=== PATIENT | male | born 1975 | race Hispanic/Latino ===

== ENCOUNTER 2017-10-02 16:19 | Emergency (ER) | payer MEDICARE ==
--- NOTE | 2017-10-02 16:57 | Emergency Department Report ---
ED General Adult HPI - General Chief complaint: Overdose Stated complaint: POSSIBLE OVERDOSE Time Seen by Provider: 10/02/17 16:44 Source: patient, EMS (ems notes not available at time of chart dictation), RN notes reviewed, old records reviewed Mode of arrival: Stretcher Limitations: Altered Mental Status (patient does not know how he got here) - History of Present Illness Initial comments: This is a 42-year-old gentleman who is not known to me previously. He doesn't know why he is in the emergency room. He doesn't know how he got here. The patient was admitted to this hospital and June for presumed overdose and unresponsiveness. He was found to have an acute metabolic encephalopathy, hepatic failure, acute kidney injury, rhabdomyolysis, and presumed aspiration pneumonia. Patient's also has a reported history of polysubstance abuse. The patient denies headache, neck pain, chest pain, abdominal pain, shortness of breath, homicidality, suicidality. He denies toxic ingestions. As per triage nurse documentation, the patient's girlfriend found him with shallow decreased respirations and unresponsiveness. Apparently EMS found the patient to be responsive but lethargic, and the patient admitted to EMS that he had used heroin. The patient is awake and follows commands currently, but doesn't recall any of this, and can therefore not described qualitative nature of symptoms, exacerbating or relieving factors. -: unknown Radiation: other Quality: other Consistency: other Improves with: other Worsens with: other Associated Symptoms: confusion, malaise, weakness, other (see history of present illness). denies: chest pain, cough, diaphoresis, fever/chills, headaches, loss of appetite, nausea/vomiting, rash, seizure, shortness of breath , syncope - Related Data Previous Rx's Medication Instructions Recorded Last Taken Type Amoxicillin/K Clav Tab [Augmentin 1 each PO Q12HR #6 tablet 06/14/17 Unknown Rx 875MG TAB] Naloxone HCl [Narcan] 4 mg NS Q1HR PRN #5 spray 10/02/17 Unknown Rx Allergies Allergy/AdvReac Type Severity Reaction Status Date / Time No Known Allergies Allergy Unverified 10/21/13 19:01 ED Review of Systems ROS: Stated complaint: POSSIBLE OVERDOSE Other details as noted in HPI Comment: Unobtainable due to pts medical conditions ED Past Medical Hx - Past Medical History Hx Psychiatric Treatment: Yes (anxiety) Additional medical history: Care Home IV drug use per family - Surgical History Additional Surgical History: Unknown - Social History Smoking Status: Current Every Day Smoker Substance Use Type: Alcohol, Heroin - Medications Home Medications: Home Medications Medication Instructions Recorded Confirmed Last Taken Type Amoxicillin/K Clav Tab [Augmentin 1 each PO Q12HR #6 tablet 06/14/17 Unknown Rx 875MG TAB] Naloxone HCl [Narcan] 4 mg NS Q1HR PRN #5 spray 10/02/17 Unknown Rx ED Physical Exam - General Limitations: Altered Mental Status General appearance: anxious, in distress - Head Head exam: Present: atraumatic, normocephalic - Eye Eye exam: Present: normal appearance, PERRL, EOMI. Absent: nystagmus - ENT ENT exam: Present: normal exam, normal orophraynx, mucous membranes moist, normal external ear exam - Neck Neck exam: Present: normal inspection, full ROM. Absent: tenderness, meningismus - Respiratory Respiratory exam: Present: normal lung sounds bilaterally. Absent: respiratory distress, wheezes, rales, rhonchi, chest wall tenderness - Cardiovascular Cardiovascular Exam: Present: normal rhythm, tachycardia, normal heart sounds. Absent: systolic murmur, diastolic murmur, rubs, gallop - GI/Abdominal GI/Abdominal exam: Present: soft, normal bowel sounds. Absent: distended, tenderness, guarding, rebound, rigid, pulsatile mass - Rectal Rectal exam: Present: deferred - Extremities Exam Extremities exam: Present: normal inspection, full ROM, normal capillary refill , other (2+ pulses noted in the bilateral upper, lower extremities. Compartments soft. No long bony tenderness. The pelvis is stable.). Absent: tenderness, pedal edema, joint swelling, calf tenderness - Back Exam Back exam: Present: normal inspection, full ROM. Absent: tenderness, CVA tenderness (R), paraspinal tenderness, vertebral tenderness - Neurological Exam Neurological exam: Present: alert (patient is alert to name and location. Does not know the month or the day of the week), CN II-XII intact, other ( Extraocular movements intact. Tongue midline. No facial droop. Facial sensation intact to light touch in the V1, V2, V3 distribution bilaterally. 5 and 5 strength in 4 extremities.. Sensation is intact to light touch in 4 extremities.). Absent: motor sensory deficit - Psychiatric Psychiatric exam: Present: anxious. Absent: homicidal ideation, suicidal ideation - Skin Skin exam: Present: warm, dry, intact, normal color. Absent: rash ED Course Vital Signs 10/02/17 10/02/17 10/02/17 16:24 16:27 16:30 Temperature 97.8 F Pulse Rate 120 H 112 H 115 H Respiratory 17 16 10 L Rate Blood Pressure 132/106 132/106 O2 Sat by Pulse 85 81 L Oximetry 10/02/17 10/02/17 10/02/17 16:46 17:00 17:16 Temperature Pulse Rate 98 H 98 H 92 H Respiratory 4 L 5 L 13 Rate Blood Pressure 132/106 132/106 118/70 O2 Sat by Pulse 95 95 95 Oximetry 10/02/17 10/02/17 10/02/17 17:30 17:50 18:00 Temperature Pulse Rate 89 79 78 Respiratory 8 L 9 L 6 L Rate Blood Pressure 116/72 116/72 133/68 O2 Sat by Pulse 97 93 Oximetry 10/02/17 10/02/17 10/02/17 18:16 18:30 18:40 Temperature Pulse Rate 77 73 Respiratory 6 L 6 L 16 Rate Blood Pressure 133/68 116/69 O2 Sat by Pulse 92 94 96 Oximetry 10/02/17 10/02/17 18:46 19:00 Temperature Pulse Rate 108 H 86 Respiratory 11 L 9 L Rate Blood Pressure 116/69 123/76 O2 Sat by Pulse 95 92 Oximetry - Reevaluation(s) Reevaluation #1: 10/02/17 17:13 Differential diagnosis, including but not limited to: Toxic encephalopathy, metabolic encephalopathy, intracranial injury, cervical spine injury, dehydration, overdose Assessment and plan: 42-year-old male with a recurrent presentation of probable overdose. He indicates no homicidality or suicidality. Most likely he has a recreational overdose. He is a nonfocal neurologic examination and is protecting his airway now, follows commands, and is saturating 99% on supplemental oxygen. We will check serum laboratory studies, toxicology studies , x-ray of the chest, EKG, obtained CT scan of the brain, cervical spine, and obtain a mental health consult for collateral information. We will observe the patient on a cardiac rehabilitation specialist with pulse oximetry. Reevaluation #2: 10/02/17 22:36 The patient has been reassessed by me numerous times while he has been here in the emergency room. His recollection has greatly improved. He thinks that he accidentally overdosed. He is currently not homicidal or suicidal, he walks with a steady gait and he exhibits decision-making capacity. I specifically advised the patient to abstain from recreational drug use, and specifically counseled him that it may result in unintentional , disability, paralysis, loss of quality of life. The patient verbalized understanding. He was also seen by the psychiatry team who agreed that the patient did not meet 1013 criteria, and he will be discharged to follow up with outpatient resources. ED Medical Decision Making - Lab Data Result diagrams: 10/02/17 17:02 10/02/17 17:02 Vital Signs 10/02/17 16:27 Temperature 97.8 F Pulse Rate 112 H Respiratory 16 Rate Blood Pressure 132/106 O2 Sat by Pulse 85 Oximetry - EKG Data -: EKG Interpreted by Me Rate: tachycardia - EKG Data 10/02/17 18:09 Sinus tachycardia Sinus, 95 bpm, right axis deviation, high left ventricular voltage, QTC prolonged, not a STEMI. Appears unchanged compared to prior EKG, with the exception of the right axis deviation - Radiology Data Radiology results: report reviewed, image reviewed interpreted by me: X-ray of the chest is negative for acute disease. Noncontrast CT scan of the brain is negative for acute disease. CT scan of the cervical spine: Critical care attestation.: If time is entered above; I have spent that time in minutes in the direct care of this critically ill patient, excluding procedure time. ED Disposition Clinical Impression: History of substance abuse Disposition: DC-01 TO HOME OR SELFCARE Is pt being admited?: No Does the pt Need Aspirin: No Condition: Stable Instructions: Narcotic Abuse (ED), Opioid Dependence (ED), Polysubstance Abuse (ED) Additional Instructions: The patient should make every effort to discontinue narcotic abuse/abuse. Long- term abuse of narcotics and illicit drugs may result in disability, paralysis , loss of quality of life. Use Narcan medication as directed for symptoms of narcotic overdose, which include sleepiness, respiratory depression, change in mental status. Follow-up with the primary care doctor or mental health professional within the next month. Return to the ER right away with fevers, chills, lethargy, irritability, projectile vomiting, change in mental status, confusion, inability to tolerate liquid feedings. Referrals: PRIMARY CARE, [Primary Care Provider] - 3-5 Days DENG ORTIZ MD [Staff Physician] - 3-5 Days [facility] [Provider Group] - 3-5 Days [facility] [Outside] - 3-5 Days
--- NOTE | 2017-10-02 17:20 | XRay Report ---
FINAL REPORT EXAM: XR CHEST 1V AP HISTORY: ams tachycardia TECHNIQUE: Frontal portable examination of the chest PRIORS: 06/14/2017 FINDINGS: There is no visible pulmonary consolidation, pleural effusion, or pneumothorax. Cardiac silhouette size is normal without vascular congestion. No visible acute displaced fracture in the regional skeleton. IMPRESSION: No acute cardiopulmonary disease in the visualized chest
[2017-10-02 17:23] LABS: Basophils % (Auto) 0.2 % (0.0-1.8); Eosinophils % (Auto) 0.2 % (0.0-4.3); Hemoglobin 15.5 gm/dl (11.8-15.2); Lymphocytes # (Auto) 1.6 K/mm3 (1.2-5.4); Lymphocytes % (Auto) 12.2 % (13.4-35.0); Mean Corpuscular HGB Conc 34 % (32-34); Mean Corpuscular Hemoglobin 31 pg (28-32); Mean Corpuscular Volume 92 fl (84-94); Monocytes % (Auto) 7.6 % (0.0-7.3); Platelet Count 165 K/mm3 (140-440); Red Blood Count 5.01 M/mm3 (3.65-5.03); Red Cell Distribution Width 13.3 % (13.2-15.2)
[2017-10-02 17:37] LABS: Alanine Aminotransferase 21 units/L (7-56); Albumin 4.7 g/dL (3.9-5); BUN/Creatinine Ratio 13; Blood Urea Nitrogen 12 mg/dL (9-20); Calcium 9.7 mg/dL (8.4-10.2); Hemolysis Index 11
--- NOTE | 2017-10-02 18:05 | Cat Scan Report ---
FINAL REPORT EXAM: CT HEAD/BRAIN WO CON HISTORY: ans , fall TECHNIQUE: CT examination of the head without IV contrast PRIORS: 06/13/2017 FINDINGS: No acute air-fluid level visualized in the included air-filled sinuses. Bone windows demonstrate no acute fracture. The brain is without mass, mass effect, hemorrhage, or acute infarct. There is no extra-axial intracranial bleed, brain bleed, or midline shift. The ventricles and sulci are age-appropriate. IMPRESSION: No acute CVA, intracranial bleed, or brain mass
--- NOTE | 2017-10-02 18:20 | Cat Scan Report ---
FINAL REPORT EXAM: CT CERVICAL SPINE WO CON HISTORY: ams fall TECHNIQUE: CT examination of the cervical spine without IV contrast PRIORS: None. FINDINGS: Prevertebral soft tissues are without swelling. No evidence of cervical fracture or vertebral compression. Multilevel degenerative changes are present at the vertebral endplates, facet joints, and uncinate joints. Anterolisthesis: None. Retrolisthesis: None. Disc narrowing: C2-3 slight, C3-4 moderate, C4-5 slight, C5-6 slight, C6-7 slight Vertebral endplate, uncinate, and facet degenerative hypertrophic change is associated with slight left C5-6 osseous neural foraminal stenosis. Soft tissue windows suggest multilevel diffuse posterior disc bulge Slight cervical spine curvature with mid left apex. Subpleural pneumatocele left lung apex. IMPRESSION: No acute skeletal pathology in the cervical spine Multilevel degenerative change and disc narrowing Left C5-6 slight neural foraminal stenosis Soft tissue windows suggest multilevel diffuse posterior disc bulge Slight cervical spine curvature may be from degenerative change, patient position, or spasm
[2017-10-02 19:56] LABS: Bacteria,Urine 1+ /HPF (Negative); Bilirubin,Urine NEG (Negative); Blood,Urine NEG (Negative); Color,Urine Yellow (Yellow); Mucus,Urine 3+ /HPF; Urobilinogen,Urine < 2.0 mg/dL (<2.0)
[2017-10-02 20:00] LABS: Benzodiazepines Screen,Urine PRESUMPTIVE NEGATIVE; Cannabinoid Screen,Urine PRESUMPTIVE NEGATIVE; Cocaine Screen,Urine PRESUMPTIVE NEGATIVE; Methadone Screen,Urine PRESUMPTIVE NEGATIVE
[2017-10-02 20:24] VITALS: BP 123/76
[2017-10-02 20:35] LABS: Amphetamine Screen,Urine PRESUMPTIVE POSITIVE; Opiate Screen,Urine PRESUMPTIVE POSITIVE
== END 2017-10-02 23:25 | disposition home or self-care (01) ==
LOC: ED 16:19
DX: F11.10 Opioid abuse, uncomplicated (principal); F17.200 Nicotine dependence, unspecified, uncomplicated
CPT/HCPCS: 36415; 70450; 71045; 72125; 80053; 80307; 81001; 82140; 82550; 85025; 93005; 93010; 99285; G0480; 80320